=== PATIENT | female | born 1975 | race Caucasian/White ===

== ENCOUNTER 2017-06-17 17:37 | Emergency (ER) | payer MEDICAID, SELFPAY ==
[2017-06-17 18:43] VITALS: BP 137/53; PULSE 102; RESP 16; TEMP 37.2; O2SAT 99; BMI 44.9
--- NOTE | 2017-06-17 18:55 | CT_ITS ---
CT abdomen pelvis wo con CLINICAL INDICATION: Vaginal pain and bleeding, peroneal pain, cervical cancer ITS.REASON: VAGINAL PAIN ORDERING PHYSICIAN: Claudine Tinajero MD PATIENT AGE: 42 years COMPARISON: 03/30/2017 TECHNIQUE: Axial images obtained with sagittal and coronal reformats. PROCEDURE: Oral Contrast: None IV Contrast: None . FINDINGS: Lung bases are clear. There is mild hepatic steatosis. There has been prior cholecystectomy. No ductal dilatation. The spleen, adrenal glands, pancreas, and kidneys have an unremarkable unenhanced appearance. No obstructing renal or ureteral calculi. Unremarkable appendix. No evidence of diverticulitis. Trace free fluid is present in the pelvis. No acute bony anomalies. IMPRESSION: 1. Trace free fluid in the pelvis. 2. Mild hepatic steatosis. 3. No acute finding
[2017-06-17 19:06] LABS: Basophils # 0.1 K/mm3 (0-0.2); Basophils % 0.7 % (0.1-2.0); Eosinophils # 0.1 K/mm3 (0.0-0.4); Eosinophils % 1.8 % (0.1-12.0); Hematocrit 46.4 % (37.0-47.0); Hemoglobin 14.6 g/dL (12.2-16.2); Lymphocytes # 2.5 K/mm3 (0.7-4.5); Lymphocytes % 30.8 K/mm3 (10-50); Mean Corpuscular HGB Conc 31.4 g/dL (31.8-35.4); Mean Corpuscular Hemoglobin 28.4 pg (27.0-31.2); Mean Corpuscular Volume 90.4 fl (81-99); Monocytes # 0.3 K/mm3 (0.1-1.0); Monocytes % 4.1 % (1.7-9.3); Neutrophils # 5.1 K/mm3 (1.8-7.8); Neutrophils % 62.7 % (37.0-80.0); Platelet Count 207 K/mm3 (142-424); Red Blood Count 5.14 M/mm3 (4.20-5.40); Red Cell Distribution Width 14.8 % (11.5-17.5); White Blood Count 8.1 K/mm3 (4.8-10.8)
[2017-06-17 19:08] LABS: Microscopic, Urine URINE MICROSCOPIC (MICROSCOPIC)
[2017-06-17 19:17] LABS: Alanine Aminotransferase 60 U/L (12-78); Albumin Level 3.7 gm/dL (3.4-5.0); Albumin/Globulin Ratio 0.9 (1.1-1.8); Alkaline Phosphatase 99 U/L (46-116); Anion Gap 10.5 mEq/L (5-15); Aspartate Amino Transferase 33 U/L (15-37); Bilirubin,Total 0.3 mg/dL (0.2-1.0); Blood Urea Nitrogen 11 mg/dL (7-18); Calcium 10.3 mg/dL (8.5-10.1); Carbon Dioxide 28 mmol/L (21.0-32.0); Chloride 103 mmol/L (98-107); Creatinine Clearance Estimated 69 mL/min (0-300); Creatinine,Serum 0.95 mg/dL (0.55-1.02); Estimated Glomerular Filt Rate > 60 ml/min (>60); GFR (African American) > 60 ML/MIN (>60); Globulin 3.9 gm/dl (1.3-3.2); Glucose 168 mg/dL (74-106); Potassium 3.5 mmoL/L (3.5-5.1); Sodium 138 mmol/L (136-145); Total Protein,Serum 7.6 gm/dL (6.4-8.2)
[2017-06-17 19:23] LABS: Appearance,Urine CLOUDY (Clear); Blood, Urine 3+ (Negative); Color,Urine AMBER (Yellow); Glucose,Urine (UA) Negative (Negative); Ketones,Urine Negative (Negative); Leukocyte Esterase,Urine Negative (Negative); Nitrate,Urine POSITIVE (Negative); PH,Urine 5.5 (5.0-8.5); Protein,Urine 2+ (Negative); Specific Gravity, Urine 1.025 (1.005-1.030); Urobilinogen,Urine 0.2 EU/dl (0.2)
[2017-06-17 19:35] LABS: Bilirubin,Urine 1+ (Negative)
[2017-06-17 19:46] LABS: Bacteria,Urine 1+ /lpf; RBC,Urine TNTC #/hpf (0-3); Squamous Epithelial Cell,Urine Occasional #/hpf (0-5); WBC,Urine Occasional #/hpf (0-3)
--- NOTE | 2017-06-17 21:13 | [facility].EDGENADL ---
ED Disposition Clinical Impression: Vaginal pain Vomiting Qualifiers: Vomiting type: unspecified Vomiting Intractability: non-intractable Nausea presence: with nausea Qualified Code(s): R11.2 - Nausea with vomiting, unspecified Hematuria Qualifiers: Hematuria type: unspecified type Qualified Code(s): R31.9 - Hematuria, unspecified Disposition: Home, Self-Care Condition on Discharge: Good Instructions: DI for Vomiting -- Adult, DI for Hematuria Additional Instructions: See your gynecologic oncologist on 06/20/17 as scheduled. Referrals: Provider,Referral, [Primary Care Provider] - - Critical Care Critical Care Time: No Attestation: On 06/17/17, the high probability of a clinically significant, sudden or life threatening deterioration of the following system(s) required my full and direct attention, intervention and personal management. The time I documented below is in addition to time spent performing reported procedures but includes the following listed in this critical care notation. Medical Decision Making Vital Signs: 06/17/17 18:43 Temperature 98.9 F Temperature Source Oral Pulse Rate [Right Brachial] 102 H Respiratory Rate 16 Blood Pressure [Left Arm] 137/53 Blood Pressure Mean [Left Arm] 81 Blood Pressure Source [Left Arm] Automatic Cuff Blood Pressure Position [Left Arm] Supine 02 Sat by Pulse Oximetry 99 Oxygen Delivery Method Room Air - Lab Data Lab Results 06/17/17 18:52: WBC 8.1, RBC 5.14, Hgb 14.6, Hct 46.4, MCV 90.4, MCH 28.4, MCHC 31.4 L, RDW 14.8, Plt Count 207, MPV 8.0, Neut % (Auto) 62.7, Lymph % (Auto) 30.8, [place] % (Auto) 4.1, Eos % (Auto) 1.8, Baso % (Auto) 0.7, Neut # (Auto) 5.1, Lymph # (Auto) 2.5, [place] # (Auto) 0.3, Eos # (Auto) 0.1, Baso # (Auto) 0.1 06/17/17 18:52: Sodium 138, Potassium 3.5, Chloride 103, Carbon Dioxide 28, Anion Gap 10.5, BUN 11, Creatinine 0.95, Estimated Creat Clear 69, Estimated GFR > 60, Est GFR ( Amer) > 60, Glucose 168 H, Calcium 10.3 H, Total Bilirubin 0.3, AST 33, ALT 60, Alkaline Phosphatase 99, Total Protein 7.6, Albumin 3.7, Globulin 3.9 H, Albumin/Globulin Ratio 0.9 L 06/17/17 19:05: Urine Color Daisha, Urine Appearance Cloudy, Urine pH 5.5, Ur Specific [place] 1.025, Urine Protein 2+, Urine Glucose (UA) Negative, Urine Ketones Negative, Urine Blood 3+, Urine Nitrate Positive, Urine Bilirubin 1+ A, Urine Urobilinogen 0.2, Ur Leukocyte Esterase Negative, Urine RBC Tntc, Urine WBC Occasional, Ur Squamous Epith Cells Occasional, Urine Bacteria 1+ Result diagrams: 06/17/17 18:52 06/17/17 18:52 Orders (Tests/Meds): ED MEDICATIONS Discontinued Medications Generic Name Dose Route Start Last Admin Trade Name Elan PRN Reason Stop Dose Admin Ibuprofen 800 mg 06/17/17 21:32 Motrin 400mg Tablet PO 06/17/17 21:33 ONCE ONE Ondansetron HCl 4 mg 06/17/17 19:50 06/17/17 19:52 Zofran 4mg/2ml Vial IV 06/17/17 19:51 4 mg ONCE ONE Administration Promethazine HCl 12.5 mg 06/17/17 21:29 Phenergan 25mg/Ml 1ml Vial IV 06/17/17 21:30 ONCE ONE Promethazine HCl 25 kenan 06/17/17 21:29 Phenergan 25mg Tablet Take Home Pack (10) PO 06/17/17 21:30 ONCE ONE Sodium Chloride 25 ml 06/17/17 21:29 Sod Chloride 0.9% 25ml Bag IV 06/17/17 21:30 ONCE ONE ORDERS Category Date Time Status CT abdomen pelvis wo con Stat Cat Scan 06/17/17 18:55 Taken - CT Data CT Scan: Abdomen, Pelvis Time Received: 21:[address] Reviewed: Yes: I have viewed the radiologist's interpretation Findings Narrative: CT scan interpreted by ad radiologist. Faxed report received and reviewed: Trace free fluid in the pelvis which could be physiologic and secondary to rupture of a previous ovarian cyst or follicular cyst. Otherwise no additional acute intra-abdominal or intrapelvic abnormality noted. No renal or renal stones. No hydronephrosis. Prior cholecystectomy. No findings to suggest acute appendi
== END 2017-06-17 22:11 | disposition home or self-care (01) ==
PROVIDERS: Emergency Medicine; Emergency Provider Emergency Medicine
DX: R10.2 Pelvic and perineal pain (principal); R11.2 Nausea with vomiting, unspecified; R31.9 Hematuria, unspecified
CPT/HCPCS: 74176; 80053; 81001; 85025; 96374; 96375; 99282; J2405

== ENCOUNTER 2017-07-17 22:18 | Emergency (ER) | payer MEDICAID, SELFPAY ==
[2017-07-17 22:47] VITALS: BP 153/89; PULSE 99; RESP 14; TEMP 37.1; O2SAT 97; BMI 46.0
--- NOTE | 2017-07-17 23:00 | XR_ITS ---
XR wrist RT min 3V HISTORY: ITS.REASON: C/O RIGHT WRIST PAIN ORDERING PHYSICIAN: Greg Rivera MD PATIENT AGE: 42 years COMPARISON: None FINDINGS: No fracture or dislocation. No lytic or blastic change. There is normal mineralization.. The joint spaces are well-preserved. No significant degenerative/arthritic changes. No erosive changes evident.. IMPRESSION: Negative wrist
--- NOTE | 2017-07-17 23:00 | XR_ITS ---
XR chest 2V HISTORY: Cough ITS.REASON: C/O COUGH ORDERING PHYSICIAN: Greg Rivera MD PATIENT AGE: 42 years COMPARISON: 03/12/2017 FINDINGS: The cardiomediastinal silhouette and pulmonary vascularity are within normal limits. The lungs are clear without infiltrates, suspicious nodules, or pleural effusions. No acute bony abnormalities. IMPRESSION: Negative chest, no acute finding
[2017-07-17 23:38] LABS: Basophils # 0.1 K/mm3 (0-0.2); Basophils % 0.7 % (0.1-2.0); Eosinophils # 0.2 K/mm3 (0.0-0.4); Hematocrit 37.3 % (37.0-47.0); Hemoglobin 11.7 g/dL (12.2-16.2); Lymphocytes # 2.3 K/mm3 (0.7-4.5); Lymphocytes % 29.2 K/mm3 (10-50); Mean Corpuscular HGB Conc 31.5 g/dL (31.8-35.4); Mean Corpuscular Hemoglobin 28.1 pg (27.0-31.2); Mean Corpuscular Volume 89.3 fl (81-99); Mean Platelet Volume 8.1 fl (7.4-10.4); Monocytes # 0.4 K/mm3 (0.1-1.0); Monocytes % 5.1 % (1.7-9.3); Neutrophils # 4.8 K/mm3 (1.8-7.8); Neutrophils % 62.1 % (37.0-80.0); Platelet Count 176 K/mm3 (142-424); Red Blood Count 4.18 M/mm3 (4.20-5.40); Red Cell Distribution Width 14.5 % (11.5-17.5); White Blood Count 7.7 K/mm3 (4.8-10.8)
[2017-07-17 23:57] LABS: Strep Scrn Group A (Rapid) Negative (Negative)
[2017-07-18 00:06] LABS: Alanine Aminotransferase 64 U/L (12-78); Albumin/Globulin Ratio 0.8 (1.1-1.8); Alkaline Phosphatase 84 U/L (46-116); Anion Gap 11.3 mEq/L (5-15); Aspartate Amino Transferase 40 U/L (15-37); Bilirubin,Total 0.2 mg/dL (0.2-1.0); Blood Urea Nitrogen 13 mg/dL (7-18); Calcium 10.6 mg/dL (8.5-10.1); Carbon Dioxide 27 mmol/L (21.0-32.0); Chloride 106 mmol/L (98-107); Creatinine Clearance Estimated 75 mL/min (0-300); Creatinine,Serum 0.91 mg/dL (0.55-1.02); Estimated Glomerular Filt Rate 68 ml/min (>60); GFR (African American) 82 ML/MIN (>60); Globulin 3.8 gm/dl (1.3-3.2); Glucose 242 mg/dL (74-106); Potassium 4.3 mmoL/L (3.5-5.1); Sodium 140 mmol/L (136-145); Total Protein,Serum 6.8 gm/dL (6.4-8.2)
--- NOTE | 2017-07-18 00:10 | HMH.EDGENADL ---
ED Disposition Clinical Impression: Migraine headache Qualifiers: Migraine type: unspecified Status migrainosus presence: without status migrainosus Intractability: not intractable Qualified Code(s): G43.909 - Migraine, unspecified, not intractable, without status migrainosus Upper respiratory infection Qualifiers: URI type: unspecified URI Qualified Code(s): J06.9 - Acute upper respiratory infection, unspecified Abdominal pain Qualifiers: Abdominal location: unspecified location Qualified Code(s): R10.9 - Unspecified abdominal pain Disposition: Home, Self-Care Condition on Discharge: Good Instructions: Acute Bronchitis, DI for Migraine Prescriptions: Amoxicillin/Potassium Clav [Augmentin 875-125 Tablet] 1 tab PO Q12H #20 tab Referrals: Victor Manuel Henderson MD [Staff Physician] - Time of Disposition: 00:11 - Critical Care Critical Care Time: No Attestation: On 07/17/17, the high probability of a clinically significant, sudden or life threatening deterioration of the following system(s) required my full and direct attention, intervention and personal management. The time I documented below is in addition to time spent performing reported procedures but includes the following listed in this critical care notation. Medical Decision Making - Medical Records Medical records reviewed: Yes: I reviewed the patient's medical records. Vital Signs: 07/17/17 22:47 07/18/17 00:27 Temperature 98.8 F 97.4 F L Temperature Source Oral Oral Pulse Rate 99 H Pulse Rate [Right Brachial] 99 H Respiratory Rate 14 16 Blood Pressure 96/64 Blood Pressure [Right Arm] 153/89 Blood Pressure Mean [Right Arm] 110 Blood Pressure Source Automatic Cuff Blood Pressure Source [Right Arm] Automatic Cuff Blood Pressure Position Sitting Blood Pressure Position [Right Arm] Supine 02 Sat by Pulse Oximetry 97 Oxygen Delivery Method Room Air - Lab Data Lab results reviewed: Yes: I reviewed the patient's lab results. Lab Results 07/17/17 23:20: WBC 7.7, RBC 4.18 L, Hgb 11.7 L, Hct 37.3, MCV 89.3, MCH 28.1, MCHC 31.5 L, RDW 14.5, Plt Count 176, MPV 8.1, Neut % (Auto) 62.1, Lymph % (Auto) 29.2, [place] % (Auto) 5.1, Eos % (Auto) 3.0, Baso % (Auto) 0.7, Neut # (Auto) 4.8, Lymph # (Auto) 2.3, [place] # (Auto) 0.4, Eos # (Auto) 0.2, Baso # (Auto) 0.1 07/17/17 23:20: Sodium 140, Potassium 4.3, Chloride 106, Carbon Dioxide 27, Anion Gap 11.3, BUN 13, Creatinine 0.91, Estimated Creat Clear 75, Estimated GFR 68, Est GFR ( Amer) 82, Glucose 242 H, Calcium 10.6 H, Total Bilirubin 0.2, AST 40 H, ALT 64, Alkaline Phosphatase 84, Total Protein 6.8, Albumin 3.0 L, Globulin 3.8 H, Albumin/Globulin Ratio 0.8 L 07/17/17 23:20: Influenza Type A Ag Negative, Influenza Type B Ag Negative, Group A Strep Rapid Negative Result diagrams: 07/17/17 23:20 07/17/17 23:20 Orders (Tests/Meds): ED MEDICATIONS Discontinued Medications Generic Name Dose Route Start Last Admin Trade Name Freq PRN Reason Stop Dose Admin Diphenhydramine HCl 50 mg 07/17/17 23:19 07/17/17 23:35 Benadryl 50mg/1ml Vial IV 07/17/17 23:20 50 mg ONCE ONE Administration Hydromorphone HCl 1 mg 07/17/17 23:20 07/17/17 23:35 Dilaudid 2mg/Ml Syringe IV 07/17/17 23:21 1 mg ONCE ONE Administration Metoclopramide HCl 10 mg 07/17/17 23:18 07/17/17 23:34 Reglan 10mg/2ml Vial IVP 07/17/17 23:19 10 mg ONCE ONE Administration - Radiology Data #1 Image(s): Chest Image Reviewed: Yes I reviewed the patient's radiology image Preliminary Findings: Normal/NAD - Mc Inquiry Pt receiving controlled substance: No - Reevaluation(s) Time: 00:00 Reevaluation #1: Patient reevaluated, appears medically stable, no acute distress. General Adult HPI - General Chief complaint: PAIN Stated complaint: Migrane, Right Wrist pain Mode of Arrival: Family Vehicle Limitations: No Limitations Description of Symptoms (Recalled from ER Triage Doc.
--- NOTE | 2017-07-18 00:14 | ED_ITS ---
ED Disposition Clinical Impression: Migraine headache Qualifiers: Migraine type: unspecified Status migrainosus presence: without status migrainosus Intractability: not intractable Qualified Code(s): G43.909 - Migraine, unspecified, not intractable, without status migrainosus Upper respiratory infection Qualifiers: URI type: unspecified URI Qualified Code(s): J06.9 - Acute upper respiratory infection, unspecified Abdominal pain Qualifiers: Abdominal location: unspecified location Qualified Code(s): R10.9 - Unspecified abdominal pain Disposition: Home, Self-Care Condition on Discharge: Good Instructions: Acute Bronchitis, DI for Migraine Prescriptions: Amoxicillin/Potassium Clav [Augmentin 875-125 Tablet] 1 tab PO Q12H #20 tab Referrals: Victor Manuel Henderson MD [Staff Physician] - Time of Disposition: 00:11 - Critical Care Critical Care Time: No Attestation: On 07/17/17, the high probability of a clinically significant, sudden or life threatening deterioration of the following system(s) required my full and direct attention, intervention and personal management. The time I documented below is in addition to time spent performing reported procedures but includes the following listed in this critical care notation. Medical Decision Making - Medical Records Medical records reviewed: Yes: I reviewed the patient's medical records. Vital Signs: 07/17/17 22:47 07/18/17 00:27 Temperature 98.8 F 97.4 F L Temperature Source Oral Oral Pulse Rate 99 H Pulse Rate [Right Brachial] 99 H Respiratory Rate 14 16 Blood Pressure 96/64 Blood Pressure [Right Arm] 153/89 Blood Pressure Mean [Right Arm] 110 Blood Pressure Source Automatic Cuff Blood Pressure Source [Right Arm] Automatic Cuff Blood Pressure Position Sitting Blood Pressure Position [Right Arm] Supine 02 Sat by Pulse Oximetry 97 Oxygen Delivery Method Room Air - Lab Data Lab results reviewed: Yes: I reviewed the patient's lab results. Lab Results 07/17/17 23:20: WBC 7.7, RBC 4.18 L, Hgb 11.7 L, Hct 37.3, MCV 89.3, MCH 28.1, MCHC 31.5 L, RDW 14.5, Plt Count 176, MPV 8.1, Neut % (Auto) 62.1, Lymph % (Auto ) 29.2, [place] % (Auto) 5.1, Eos % (Auto) 3.0, Baso % (Auto) 0.7, Neut # (Auto) 4.8, Lymph # (Auto) 2.3, [place] # (Auto) 0.4, Eos # (Auto) 0.2, Baso # (Auto) 0.1 07/17/17 23:20: Sodium 140, Potassium 4.3, Chloride 106, Carbon Dioxide 27, Anion Gap 11.3, BUN 13, Creatinine 0.91, Estimated Creat Clear 75, Estimated GFR 68, Est GFR ( Amer) 82, Glucose 242 H, Calcium 10.6 H, Total Bilirubin 0.2, AST 40 H, ALT 64, Alkaline Phosphatase 84, Total Protein 6.8, Albumin 3.0 L, Globulin 3.8 H, Albumin/Globulin Ratio 0.8 L 07/17/17 23:20: Influenza Type A Ag Negative, Influenza Type B Ag Negative, Group A Strep Rapid Negative Result diagrams: 07/17/17 23:20 07/17/17 23:20 Orders (Tests/Meds): ED MEDICATIONS Discontinued Medications Generic Name Dose Route Start Last Admin Trade Name Freq PRN Reason Stop Dose Admin Diphenhydramine HCl 50 mg 07/17/17 23:19 07/17/17 23:35 Benadryl 50mg/1ml Vial IV 07/17/17 23:20 50 mg ONCE ONE Administration Hydromorphone HCl 1 mg 07/17/17 23:20 07/17/17 23:35 Dilaudid 2mg/Ml Syringe IV 07/17/17 23:21 1 mg ONCE ONE Administration Metoclopramide HCl 10 mg 07/17/17 23:18 07/17/17 23:34 Reglan 10m
[2017-07-18 00:27] VITALS: BP 96/64; PULSE 99; RESP 16; TEMP 36.3; O2SAT 96
== END 2017-07-18 00:29 | disposition home or self-care (01) ==
PROVIDERS: Emergency Provider Emergency Medicine
DX: G43.909 Migraine, unspecified, not intractable, without status migrainosus (principal); J06.9 Acute upper respiratory infection, unspecified; R10.9 Unspecified abdominal pain; M25.531 Pain in right wrist; Z79.899 Other long term (current) drug therapy; Z88.6 Allergy status to analgesic agent; F17.210 Nicotine dependence, cigarettes, uncomplicated
CPT/HCPCS: 71046; 73110; 80053; 85025; 87275; 87276; 87430; 96374; 96375; 99282

== ENCOUNTER 2017-08-01 00:28 | Emergency (ER) | payer MEDICAID, SELFPAY ==
[2017-08-01 00:36] VITALS: BP 151/93; PULSE 89; RESP 16; TEMP 37; O2SAT 97; BMI 43.5
--- NOTE | 2017-08-01 00:54 | XR_ITS ---
XR chest 2V Ordering Physician: Greg Rivera MD Patient Age: 42 years: Female HISTORY: ITS.REASON: SOBdyspnea. Chronic lung changes sent for TECHNIQUE: PA lateral chest COMPARISON :CXR 411 [id number] 18 08/15/2015. FINDINGS The patient has indicated been seen on previous studies, unchanged since 2015 again subtle accentuation markings right midlung and right base is a stable feature in this patient. Nothing definitely acute. The lung franz are well expanded. Heart harvinder negative. Structures satisfactory no pneumothorax. No pleural effusion. Chest wall unremarkable IMPRESSION: Nothing definitely acute. Mild chronic changes most evident right chest
--- NOTE | 2017-08-01 01:06 | HMH.EDHA ---
ED Disposition Clinical Impression: RAD (reactive airway disease) Qualifiers: Asthma severity: moderate Asthma persistence: persistent Asthma complication type: uncomplicated Qualified Code(s): J45.40 - Moderate persistent asthma, uncomplicated Acute bronchitis Qualifiers: Bronchitis organism: unspecified organism Qualified Code(s): J20.9 - Acute bronchitis, unspecified Migraine headache Qualifiers: Migraine type: without aura Status migrainosus presence: without status migrainosus Intractability: not intractable Qualified Code(s): G43.009 - Migraine without aura, not intractable, without status migrainosus Disposition: Home, Self-Care Condition on Discharge: Good Instructions: DI for Migraine, DI for Acute Bronchitis, DI for Reactive Airway Disease-Adult Additional Instructions: You have 10 days supply of Depakote, please make sure you call Dr. Joseph's office in the morning so that he can obtain a refill for the Depakote beyond the 10 days, or at least a follow-up appointment with a neurologist. Take the antibiotics prescribed and use the inhaler as directed, if not better follow-up with PCP within the next 2-3 days. Prescriptions: Albuterol Sulfate [Albuterol HFA Inhaler] 2 puff IH Q4HP PRN #1 inh PRN Reason: Shortness Of Breath Or Wheezing Amoxicillin/Potassium Clav [Augmentin 875-125 Tablet] 1 tab PO Q12H #20 tab Divalproex Sodium [Depakote Sprinkle 125mg capsule] 125 mg PO BID #20 [email or web address] Referrals: Rika Joseph MD [Staff Physician] - Time of Disposition: 02:08 - Critical Care Critical Care Time: No Attestation: On , the high probability of a clinically significant, sudden or life threatening deterioration of the following system(s) required my full and direct attention, intervention and personal management. The time I documented below is in addition to time spent performing reported procedures but includes the following listed in this critical care notation. Medical Decision Making - Medical Records Medical records reviewed: Yes: I reviewed the patient's medical records. Vital Signs: 08/01/17 00:36 08/01/17 01:24 08/01/17 02:34 Temperature 98.6 F 97.8 F Temperature Source Oral Oral Pulse Rate 89 92 H Pulse Rate [Right Radial] 89 Respiratory Rate 16 16 Blood Pressure 151/93 Blood Pressure [Right Arm] 151/93 Blood Pressure Mean [Right Arm] 112 Blood Pressure Source Automatic Cuff Blood Pressure Source [Right Arm] Automatic Cuff Blood Pressure Position Sitting Blood Pressure Position [Right Arm] Supine 02 Sat by Pulse Oximetry 97 Oxygen Delivery Method Room Air Room Air - Lab Data Lab results reviewed: Yes: I reviewed the patient's lab results. Orders (Tests/Meds): ED MEDICATIONS Discontinued Medications Generic Name Dose Route Start Last Admin Trade Name Elan PRN Reason Stop Dose Admin Albuterol/Ipratropium 3 ml 08/01/17 01:00 08/01/17 01:23 Duoneb 3ml Neb IH 08/31/17 00:59 3 ml Q1H MARKUS Administration Divalproex Sodium 500 mg 08/01/17 09:00 Depakote 250mg (Extended-Release) Tablet PO 08/31/17 08:59 DAILY MARKUS Divalproex Sodium 500 mg 08/01/17 01:32 08/01/17 01:35 Depakote 250mg (Extended-Release) Tablet PO 08/01/17 01:33 500 mg ONCE ONE Administration - Radiology Data #1 Image(s): Chest Image Reviewed: Yes I reviewed the patient's radiology results, Yes I reviewed the patient's radiology image Preliminary Findings: Normal/NAD - Mc Inquiry Pt receiving controlled substance: No - Reevaluation(s) Time: 02:00 Reevaluation #1: Patient appears medically stable, in no acute distress upon re-evaluation. Instructed to follow up with neurologist manjit. Headache HPI - General Chief Complaint: Headache Stated Complaint: Migraine, SOB Mode of Arrival: Ambulatory Source of Information: Patient Limitations: No Limitations Description of Symptoms (Recalled from ER Triage Doc. by RN): migraine, SOB x 3
--- NOTE | 2017-08-01 01:13 | ED_ITS ---
ED Disposition Clinical Impression: RAD (reactive airway disease) Qualifiers: Asthma severity: moderate Asthma persistence: persistent Asthma complication type: uncomplicated Qualified Code(s): J45.40 - Moderate persistent asthma, uncomplicated Acute bronchitis Qualifiers: Bronchitis organism: unspecified organism Qualified Code(s): J20.9 - Acute bronchitis, unspecified Migraine headache Qualifiers: Migraine type: without aura Status migrainosus presence: without status migrainosus Intractability: not intractable Qualified Code(s): G43.009 - Migraine without aura, not intractable, without status migrainosus Disposition: Home, Self-Care Condition on Discharge: Good Instructions: DI for Migraine, DI for Acute Bronchitis, DI for Reactive Airway Disease-Adult Additional Instructions: You have 10 days supply of Depakote, please make sure you call Dr. Joseph's office in the morning so that he can obtain a refill for the Depakote beyond the 10 days, or at least a follow-up appointment with a neurologist. Take the antibiotics prescribed and use the inhaler as directed, if not better follow-up with PCP within the next 2-3 days. Prescriptions: Albuterol Sulfate [Albuterol HFA Inhaler] 2 puff IH Q4HP PRN #1 inh PRN Reason: Shortness Of Breath Or Wheezing Amoxicillin/Potassium Clav [Augmentin 875-125 Tablet] 1 tab PO Q12H #20 tab Divalproex Sodium [Depakote Sprinkle 125mg capsule] 125 mg PO BID #20 [email or web address] Referrals: Rika Joseph MD [Staff Physician] - Time of Disposition: 02:08 - Critical Care Critical Care Time: No Attestation: On , the high probability of a clinically significant, sudden or life threatening deterioration of the following system(s) required my full and direct attention, intervention and personal management. The time I documented below is in addition to time spent performing reported procedures but includes the following listed in this critical care notation. Medical Decision Making - Medical Records Medical records reviewed: Yes: I reviewed the patient's medical records. Vital Signs: 08/01/17 00:36 08/01/17 01:24 08/01/17 02:34 Temperature 98.6 F 97.8 F Temperature Source Oral Oral Pulse Rate 89 92 H Pulse Rate [Right Radial] 89 Respiratory Rate 16 16 Blood Pressure 151/93 Blood Pressure [Right Arm] 151/93 Blood Pressure Mean [Right Arm] 112 Blood Pressure Source Automatic Cuff Blood Pressure Source [Right Arm] Automatic Cuff Blood Pressure Position Sitting Blood Pressure Position [Right Arm] Supine 02 Sat by Pulse Oximetry 97 Oxygen Delivery Method Room Air Room Air - Lab Data Lab results reviewed: Yes: I reviewed the patient's lab results. Orders (Tests/Meds): ED MEDICATIONS Discontinued Medications Generic Name Dose Route Start Last Admin Trade Name Freq PRN Reason Stop Dose Admin Albuterol/Ipratropium 3 ml 08/01/17 01:00 08/01/17 01:23 Duoneb 3ml Neb IH 08/31/17 00:59 3 ml Q1H MARKUS Administration Divalproex Sodium 500 mg 08/01/17 09:00 Depakote 250mg (Extended-Release) Tablet PO 08/31/17 08:59 DAILY MARKUS Divalproex Sodium 500 mg 08/01/17 01:32 08/01/17 01:35 Depakote 250mg (Extended-Release) Tablet PO 08/01/17 01:33 500 mg ONCE ONE Administration - Radiology Data #1 Image(s): Chest Image Re
[2017-08-01 01:24] VITALS: PULSE 89; PULSE 93
[2017-08-01 02:34] VITALS: BP 151/93; PULSE 92; RESP 16; TEMP 36.6; O2SAT 95
== END 2017-08-01 02:15 | disposition home or self-care (01) ==
PROVIDERS: Emergency Provider Emergency Medicine
DX: G43.909 Migraine, unspecified, not intractable, without status migrainosus (principal); J45.40 Moderate persistent asthma, uncomplicated; J20.9 Acute bronchitis, unspecified; Z79.82 Long term (current) use of aspirin
CPT/HCPCS: 71046; 99281